=== PATIENT | female | born 1935 | race Caucasian/White ===

== ENCOUNTER → 2016-11-30 | Outpatient (CLI) | payer MEDICARE, OTHER ==
--- NOTE | 2016-11-30 16:51 | XCELERA REPORT ---
[address] [address] Lower Extremity Venous Evaluation Name: MATT SILVEIRA Age: 81 yrs Gender: Female : 1935 Patient Status: Outpatient Patient Location: Study Date: 11/30/2016 01:24 PM Procedure: A bilateral duplex scan of the lower extremity veins was performed. The evaluation included responses to compression and other maneuvers with patient in the supine and standing positions to assess venous insufficiency. Reason For Study: VARICOSE VEINS Ordering Physician: ASCENCION HARDEN Performed By: Owen Spence Right Sided Venous Evaluation Deep venous system evaluatiion shows patent veins with no obstruction or significant reflux identified. Sapheno Femoral junction: no reflux. Femoral vein reflux: no reflux. Greater Saphenous vein, Proximal thigh: reflux: no reflux. Greater Saphenous vein, Distal thigh: reflux: no reflux. Greater Saphenous vein, Proximal below knee: reflux: no reflux. No significant Perforators identified.". Left Sided Venous Evaluation Deep venous system evaluatiion shows patent veins with no obstruction or significant reflux identified. Sapheno Femoral junction: no reflux. Femoral vein reflux: no reflux. Greater Saphenous vein, Proximal thigh: reflux: no reflux. Greater Saphenous vein, Mid thigh: reflux: 3.7 seconds.8 mm. Greater Saphenous vein, Distal thigh: reflux: 4.2 seconds.6 mm . Greater Saphenous vein, Proximal below knee: reflux: no reflux. Greater Saphenous vein, Mid below knee: reflux: 4.4 second reflux, 4 mm.. No significant Perforators identified. Interpretation Summary No duplex evidence of DVT or obstruction in the bilateral lower extremities. Reflux as noted. 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 : ASCENCION HARDEN > Ascencion Harden
== END ==
LOC: SP 13:05
PROVIDERS: ATTEND Surgery
DX: I83.899 Varicose veins of unspecified lower extremity with other complications (principal)
CPT/HCPCS: 93970

== ENCOUNTER 2016-12-02 13:07 | Emergency (ER) | payer MEDICARE, OTHER ==
--- NOTE | 2016-12-02 14:12 | ER Document Report ---
ED Medical Screen (RME) - General Chief Complaint: General Weakness Stated Complaint: FALL,WEAKNESS Time Seen by Provider: 12/02/16 14:10 Notes: The patient is an 81-year-old female, past medical history dementia, on Coumadin for ?A fib?, presents after she fell out of bed twice last night and she is acting more confused than normal. Her caregiver and son are at bedside. Patient is not complaining of anything at this time, but she is confused and will not answer questions appropriately. No new medications. Patient has right forehead contusion. No other signs of injuries during exam when she is dressed. I have greeted and performed a rapid initial assessment of this patient. A comprehensive ED assessment and evaluation of the patient, analysis of test results and completion of the medical decision making process will be conducted by additional ED providers. TRAVEL OUTSIDE OF THE [place] IN LAST 30 DAYS: No - Related Data Allergies/Adverse Reactions: No Known Allergies Allergy (Verified 01/26/15 13:42) Past Medical History - Past Medical History Cardiac Medical History: Reports: Hx Hypertension Denies: Hx Coronary Artery Disease, Hx Heart Attack Pulmonary Medical History: Reports: Hx Pneumonia - HX OF Denies: Hx Asthma, Hx Bronchitis, Hx COPD Neurological Medical History: Reports: Hx Seizures - ON KEPPA. Denies: Hx Cerebrovascular Accident Renal/ Medical History: Denies: Hx Peritoneal Dialysis GI Medical History: Reports: Hx Gastroesophageal Reflux Disease Musculoskeltal Medical History: Denies Hx Arthritis Psychiatric Medical History: Reports: Hx Dementia Past Surgical History: Reports: Hx Vascular Surgery - varicose veins - Immunizations Hx Diphtheria, Pertussis, Tetanus Vaccination: No Physical Exam - Vital signs Vitals: Pulse Resp BP Pulse Ox 114 H 18 117/79 100 12/02/16 13:34 12/02/16 13:34 12/02/16 13:34 12/02/16 13:34 Course - Vital Signs Vital signs: Temp Pulse Resp BP Pulse Ox 97.6 F 114 H 18 117/79 100 12/02/16 13:39 12/02/16 13:34 12/02/16 13:34 12/02/16 13:34 12/02/16 13:34
[2016-12-02 14:52] LABS: APPEARANCE,URINE SLIGHTLY-CLOUDY; BILIRUBIN,URINE NEGATIVE (NEGATIVE); GLUCOSE, URINE NEGATIVE (NEGATIVE); KETONES,URINE NEGATIVE (NEGATIVE); LEUKOCYTE ESTERASE,URINE NEGATIVE (NEGATIVE); NITRITE,URINE NEGATIVE (NEGATIVE); PROTEIN,URINE 30 mg/dL (NEGATIVE); URINE SPECIFIC GRAVITY 1.025; UROBILINOGEN,URINE NEGATIVE mg/dL (<2.0)
--- NOTE | 2016-12-02 15:24 | ER Document Report ---
ED General - General Chief Complaint: General Weakness Stated Complaint: FALL,WEAKNESS Time Seen by Provider: 12/02/16 14:10 Mode of Arrival: Medic Information source: Patient, Relative - Patient is accompanied by her son and caregiver Notes: This is an 81-year-old female with a history of dementia, seizures, hypertension , atrial fibrillation (on Coumadin). The patient's caregiver states that the patient rolled out of bed last night twice. She didn't hit the right side of her forehead. The patient's done states that the patient normally mostly brought on the edge of the bed. The caregiver states that the patient seems to be more sleepy lately even before the 2 falls last night. The patient is resting and easily arousable and does not have any complaints and does not appear to be in any distress. Medicines: Coumadin 4 mg daily Keppra 500 mg twice a day Zoloft Diltiazem 120 mg daily Xanax Simvastatin Right the steak Main 1.5 twice a day Primary care Dr Walter Gonzalez TRAVEL OUTSIDE OF THE [place] IN LAST 30 DAYS: No - HPI Onset: This morning Onset/Duration: Gradual Quality of pain: No pain Severity: None Pain Level: Denies Associated symptoms: denies: Chest pain, Fever, Shortness of breath Exacerbated by: Denies Relieved by: Denies Similar symptoms previously: Yes Recently seen / treated by doctor: No - Related Data Allergies/Adverse Reactions: No Known Allergies Allergy (Verified 01/26/15 13:42) Past Medical History - General Information source: Patient - Social History Smoking Status: Never Smoker Cigarette use (# per day): No Chew tobacco use (# tins/day): No Frequency of alcohol use: None Drug Abuse: None Lives with: Family Family History: Reviewed & Not Pertinent Patient has suicidal ideation: No Patient has homicidal ideation: No - Past Medical History Cardiac Medical History: Reports: Hx Hypertension Denies: Hx Coronary Artery Disease, Hx Heart Attack Pulmonary Medical History: Reports: Hx Pneumonia - HX OF Denies: Hx Asthma, Hx Bronchitis, Hx COPD Neurological Medical History: Reports: Hx Seizures - ON KEPPA. Denies: Hx Cerebrovascular Accident Renal/ Medical History: Denies: Hx Peritoneal Dialysis GI Medical History: Reports: Hx Gastroesophageal Reflux Disease Musculoskeltal Medical History: Denies Hx Arthritis Psychiatric Medical History: Reports: Hx Dementia Past Surgical History: Reports: Hx Vascular Surgery - varicose veins - Immunizations Hx Diphtheria, Pertussis, Tetanus Vaccination: No Review of Systems - Review of Systems Constitutional: denies: Chills, Fever EENT: No symptoms reported Cardiovascular: No symptoms reported Respiratory: No symptoms reported Gastrointestinal: No symptoms reported Genitourinary: No symptoms reported Female Genitourinary: No symptoms reported Musculoskeletal: See HPI Skin: No symptoms reported Hematologic/Lymphatic: No symptoms reported Neurological/Psychological: See HPI Physical Exam - Vital signs Vitals: Pulse Resp BP Pulse Ox 114 H 18 117/79 100 12/02/16 13:34 12/02/16 13:34 12/02/16 13:34 12/02/16 13:34 Notes: Physical exam: GENERAL: 81-year-old female, resting, easily arousable, no acute distress. HEAD: Normocephalic. The patient does have a right frontal contusion just above the eyebrow without any significant swelling. EYES: Pupils equal round and reactive to light, extraocular movements intact, sclera anicteric, conjunctiva are normal. ENT: TMs normal, nares patent, oropharynx clear without exudates. Moist mucous membranes. NECK: Normal range of motion, supple without lymphadenopathy or JVD. LUNGS: Breath sounds clear to auscultation bilaterally and equal. No wheezes rales or rhonchi. HEART: Regular rate and rhythm without murmurs, rubs or gallops. ABDOMEN: Soft, normoactive bowel sounds. No tenderness to palpation. No guarding, no rebound. No masses appreciated. EXTREMITIES: Normal range of motion, no pitting or edema. No clubbing or cyanosis. NEUROLOGICAL: Cranial nerves II through XII grossly intact. Normal speech, moving all extremities. PSYCH: Normal mood, normal affect. SKIN: Warm, Dry, normal turgor, no rashes or lesions noted. Course - Re-evaluation Re-evalutation: The patient's head CT shows no evidence of bleed. Her labs are acceptable at this point. The BNP is elevated but the exam shows no evidence of fluid overload and her chest x-ray is clear and she has no evidence of respiratory distress at all. Her troponin is negative and her CK-MB fraction is less than 5 %. Her EKG is unchanged. She is here for fall and hitting her head during that episode. She is on Coumadin but there is no evidence of bleeding at this point. The patient is alert and bad and wants to go. 12/02/16 23:52 Note: The caregiver also is concerned about some head movement ever since starting a medicine for her dementia/Parkinson's. She doesn't have any lip smacking or dystonia. But this may be the beginning of some extrapyramidal type symptoms. I've advised him to stop the medicine and to see if these movements improved. - Vital Signs Vital signs: Temp Pulse Resp BP Pulse Ox 97.4 F 63 20 139/91 H 95 12/02/16 18:35 12/02/16 18:35 12/02/16 18:35 12/02/16 18:35 12/02/16 18:35 - Laboratory Result Diagrams: 12/02/16 15:15 12/02/16 15:15 Laboratory results interpreted by me: 12/02/16 12/02/16 12/02/16 14:21 15:15 15:15 RBC 3.42 L Hgb 9.8 L Hct 30.8 L MCHC 31.7 L RDW 15.3 H PT APTT BUN 21 H Creatine Kinase 153 H CK-MB (CK-2) NT-Pro-B Natriuret Pep Urine Protein 30 H 12/02/16 12/02/16 12/02/16 15:15 15:15 15:15 RBC Hgb Hct MCHC RDW PT 25.8 H APTT 38.2 H BUN Creatine Kinase CK-MB (CK-2) 5.71 H NT-Pro-B Natriuret Pep 65600 H Urine Protein - Diagnostic Test Radiology reviewed: Image reviewed, Reports reviewed - CT of the head shows no acute intracranial bleed - EKG Interpretation by Me Rate: Normal Rhythm: NSR - EKG shows sinus rhythm with a ventricular rate of 102, intermittent PVCs, no significant change from EKG 10/07/2014. Discharge - Discharge Clinical Impression: fall, head contusion Condition: Stable Disposition: HOME, SELF-CARE Additional Instructions: As we discussed the head CT showed no acute fracture or bleed. The chest x-ray looked clear and did not show any fluid. It did show a questionable nodule in the right lower lobe and the recommendation would be for repeat chest x-ray and 3 months. Recommendations: I would recommend stopping this last medicine as she may be getting some side effects from it. See if her symptoms improve over the next week or so. Follow-up and Dr. Sands's office in the next few days. Return to the emergency room for worsening falls. Miss Ramos may need to come off the Coumadin if she continues to fall. Return to the emergency room for any concerns at Miss Ramos is having worsening mental status changes or shortness of breath. Referrals: WALTER GONZALEZ MD [Primary Care Provider] - Follow up in 3-5 days
[2016-12-02 15:39] LABS: ABSOLUTE LYMPHOCYTES (AUTO) 1.1 10^3/uL (0.5-4.7); ABSOLUTE MONOCYTES (AUTO) 0.6 10^3/uL (0.1-1.4); ABSOLUTE NEUT (AUTO) 3.8 10^3/uL (1.7-8.2); BASOPHILS % (AUTO) 0.7 % (0-2); EOSINOPHILS % (AUTO) 0.5 % (0-6); HEMATOCRIT 30.8 % (36.0-47.0); HEMOGLOBIN 9.8 g/dL (12.0-15.5); HGB HCT DIFFERENCE -1.4; LYMPHOCYTES % (AUTO) 20.1 % (13-45); MEAN CORPUSCULAR HEMOGLOBIN 28.6 pg (27.0-33.4); MEAN CORPUSCULAR HGB CONC 31.7 g/dL (32.0-36.0); MEAN CORPUSCULAR VOLUME 90 fl (80-97); MONOCYTES % (AUTO) 10.5 % (3-13); RED BLOOD COUNT 3.42 10^6/uL (3.72-5.28); RED CELL DISTRIBUTION WIDTH 15.3 % (11.5-14.0); SEGMENTED NEUTROPHILS % (AUTO) 68.2 % (42-78); WHITE BLOOD COUNT 5.6 10^3/uL (4.0-10.5)
[2016-12-02 15:53] LABS: ALANINE AMINOTRANSFERASE 46 U/L (9-52); ALBUMIN 3.7 g/dL (3.5-5.0); ALKALINE PHOSPHATASE 118 U/L (38-126); ANION GAP 12 (5-19); ASPARTATE AMINO TRANSFERASE 29 U/L (14-36); BILIRUBIN,DIRECT 0.2 mg/dL (0.0-0.4); BILIRUBIN,TOTAL 0.6 mg/dL (0.2-1.3); BLOOD UREA NITROGEN 21 mg/dL (7-20); CALCIUM 8.8 mg/dL (8.4-10.2); CARBON DIOXIDE 22 mmol/L (22-30); CHLORIDE 105 mmol/L (98-107); CREATINE KINASE 153 U/L (30-135); CREATININE RESULT 0.86 mg/dL (0.52-1.25); GLUCOSE 101 mg/dL (75-110); LIPASE 166.7 U/L (23-300); POTASSIUM 4.4 mmol/L (3.6-5.0); SODIUM 138.9 mmol/L (137-145); TOTAL PROTEIN 6.6 g/dL (6.3-8.2)
[2016-12-02 16:23] LABS: TROPONIN I 0.016 ng/mL
[2016-12-02 16:43] LABS: PROTHROMBIN TIME 25.8 SEC (11.4-15.4)
[2016-12-02 16:44] LABS: PARTIAL THROMBOPLASTIN TIME 38.2 SEC (23.5-35.8)
[2016-12-02 18:35] VITALS: BP 139/91
--- NOTE | 2016-12-03 13:07 | EKG REPORT ---
SEVERITY:- ABNORMAL ECG - SINUS TACHYCARDIA VENTRICULAR BIGEMINY PROBABLE LEFT ATRIAL ABNORMALITY CONSIDER RIGHT VENTRICULAR HYPERTROPHY CONSIDER LEFT VENTRICULAR HYPERTROPHY : Confirmed by: Christina Hernandez 03-Dec-2016 13:06:50
== END 2016-12-02 18:35 | disposition home or self-care (01) ==
LOC: ER 13:07
DX: S00.83XA Contusion of other part of head, initial encounter (principal); W06.XXXA Fall from bed, initial encounter; I10 Essential (primary) hypertension; R56.9 Unspecified convulsions; I48.91 Unspecified atrial fibrillation; Z79.01 Long term (current) use of anticoagulants; Z79.899 Other long term (current) drug therapy; G20 Parkinson's disease; F02.80 Dementia in other diseases classified elsewhere, unspecified severity, without behavioral disturbance, psychotic disturbance, mood disturbance, and anxiety; I49.3 Ventricular premature depolarization
CPT/HCPCS: 36415; 70450; 71010; 80048; 80076; 81001; 82550; 82553; 83690; 83880; 84484; 85025; 85610; 85730; 87086; 93005; 93010; 99285